=== PATIENT | female | born 1940 | race Caucasian/White ===

== ENCOUNTER 2017-08-07 12:02 | Emergency (ER) | payer MEDICARE, BC, MEDICAID ==
[2009-10-04 11:54] VITALS: BMI 31.2
[2017-08-07 12:57] LABS: BASOPHILS 0.4 % (0-2); EOSINOPHILS 1.1 % (0-7); HEMATOCRIT 41.3 % (36.0-48.0); HEMOGLOBIN 13.9 g/dL (12-16); MCHC 33.7 g/dL (31.0-37.0); MCV 95.2 fL (80.0-100.0); MEAN PLATELET VOLUME 10.8 fL (7.4-10.4); MONOCYTES 10.3 % (2-11); NEUTROPHILS 62.2 % (40-80); PLATELET COUNT 184 10x3/uL (130-400); RBC 4.34 10x6/uL (4.00-5.40); RDW 13.6 % (11.5-14.5); WBC 4.6 10x3/uL (4.8-10.8)
[2017-08-07 13:08] LABS: APTT 32.2 SECONDS (22.8-39.4); INR 1.01 (0.85-1.17); PROTIME 12.9 SECONDS (11.6-15.0)
[2017-08-07 13:11] LABS: ALBUMIN 3.7 g/dL (3.4-5.0); ALKALINE PHOSPHATASE 64 U/L (46-116); ALT (SGPT) 22 U/L (10-68); BILIRUBIN - TOTAL 1.02 mg/dL (0.2-1.3); CALC OSMOLALITY 273 mosm/kg (275-300); CALCIUM 8.6 mg/dL (8.5-10.1); CARBON DIOXIDE 25.2 mmol/L (21.0-32.0); CHLORIDE - SERUM 102 mmol/L (98-107); GLUCOSE 95 mg/dL (74-106); POTASSIUM - SERUM 3.9 mmol/L (3.5-5.1); PROTEIN - SERUM 7.5 g/dL (6.4-8.2); SODIUM 137 mmol/L (136-145); UREA NITROGEN 12 mg/dL (7-18); eGFR NON AFRICAN AMERICAN 57 mL/min (90-120)
[2017-08-07 13:15] LABS: CREATINE KINASE 71 UL (21-215); TROPONIN-I < 0.017 ng/mL (0.000-0.060)
[2017-08-07 14:00] LABS: APPEARANCE CLEAR (CLEAR); BILIRUBIN NEGATIVE (NEGATIVE); COLOR YELLOW (YELLOW); GLUCOSE NEGATIVE (NEGATIVE); KETONE MODERATE mg/dL (NEGATIVE); NITRITE NEGATIVE (NEGATIVE); PROTEIN NEGATIVE (NEGATIVE); UROBILINOGEN NORMAL (NORMAL)
[2017-08-07 14:01] LABS: BACTERIA MODERATE /hpf (NONE SEEN); EPITHELIAL CELLS 0-5 /hpf (0-5); RED CELLS - URINE OCC /hpf (0-5); WHITE CELLS - URINE RARE /hpf (0-5)
== END 2017-08-07 17:30 | disposition home or self-care (01) ==
LOC: D.ER 12:02
PROVIDERS: Emergency Medicine
DX: R07.9 Chest pain, unspecified (principal); N39.0 Urinary tract infection, site not specified

== ENCOUNTER → 2017-08-28 10:23 | Outpatient (CLI) | payer MEDICARE, BC, MEDICAID ==
[2009-10-04 11:54] VITALS: BMI 31.2
[2017-09-04 03:11] LABS: OVA + PARASITE EXAM Final report (())
== END | disposition home or self-care (01) ==
LOC: D.LAB 10:00
PROVIDERS: Internal Medicine Gastroenterology
DX: R19.7 Diarrhea, unspecified (principal)

== ENCOUNTER → 2019-06-02 10:10 | Outpatient (CLI) | payer MEDICARE, BC, MEDICAID ==
[2009-10-04 11:54] VITALS: BMI 31.2
--- NOTE | 2019-06-03 14:04 | ST ---
PATIENT:JESUS KWAN MEDICAL RECORD: [id number] SEX: F LOCATION:[facility] ORDER #: ADMISSION DATE: 06/02/19 AGE OF PATIENT: 79 REFERRING PHYSICIAN: INTERPRETING PHYSICIAN: BORA CABRALES MD DATE OF SERVICE: 06/02/2019 PROCEDURE: Nuclear stress test. INDICATION: Angina, hypertension. The patient was exercised on standard Daniel protocol for 6 minutes 30 seconds achieving 85% max target heart rate response with 33 mCi of sestamibi injected at peak stress, 11 mCi used previously for rest images. FINDINGS: Gated SPECT reveals preserved ejection fraction at 62% with good wall motion and thickening and brightening throughout all segments. SPECT imaging Cardiolite was used as myocardial fusion agent. There is homogeneous uptake throughout all segments at rest and stress with no evidence of inducible ischemia or previous infarction. OVERALL IMPRESSION: 1. This is a normal nuclear stress test with no evidence of inducible ischemia or previous infarction. 2. Gated SPECT reveals a preserved ejection fraction at 62%. In this patient with ongoing symptomatology, the current scan does not suggest the presence of hemodynamically significant coronary artery disease. Evaluate noncardiac etiology of chest pain. TRANSINT:[id number] Voice Confirmation ID: [id number] DOCUMENT ID: [id number] cc: Ladonna Nagy [phone] BORA CABRALES MD at [id number] CC: LADONNA NAGY [phone] DICTATION DATE: 06/02/19 1640 RADIO SCRIPT WRITER: 06/03/19 0834 DEP CLI 06/02/[address] [id number]
== END | disposition home or self-care (01) ==
LOC: D.HCCARDIO 10:10
PROVIDERS: ATTEND Internal Medicine Interventional Cardiology
DX: R07.9 Chest pain, unspecified (principal)